=== PATIENT | female | born 2000 | race Caucasian/White ===

== ENCOUNTER 2020-08-28 01:33 | Emergency (ER) | payer OTHER ==
[2020-08-28 02:13] LABS: RED BLOOD COUNT 4.92 M/UL (4.00-5.10)
[2020-08-28 02:34] LABS: BUN/CREATININE RATIO 11 (0-10)
[2020-08-28] MEDS ORDERED: MIRALAX 119 GR119 GM GT (04:05)
[2020-08-28] MEDS ORDERED: BENTYL 20MG TAB20 MG PO (04:05)
== END 2020-08-28 04:24 | disposition home or self-care (01) ==
LOC: ER1 01:33
PROVIDERS: Physician Assistant Medical
DX: R10.31 Right lower quadrant pain (principal); R11.2 Nausea with vomiting, unspecified; Z79.899 Other long term (current) drug therapy
CPT/HCPCS: 80053; 81001; 84703; 85025; 85652; 86140; 99284; Q9967